=== PATIENT | female | born 1970 | race Caucasian/White ===

== ENCOUNTER 2017-08-25 13:10 | Emergency (ER) | payer SELFPAY ==
[2017-08-25] MEDS ORDERED: Sodium Chloride 0.9% 10 ML Syringe FLUSH PRN (13:31)
[2017-08-25] MEDS ORDERED: MVI, Adult with Vitamin K 10 ML, Thiamine 100 MG, Folic Acid 1 MG in Sodium Chloride 0.... IV ONE ×4 (13:31)
[2017-08-25] MEDS ORDERED: Sodium Chloride 0.9% 2.5 ML Syringe FLUSH PRN (13:31)
--- NOTE | 2017-08-25 13:32 | EDM.PDOCBH ---
ED HPI GENERAL MEDICAL PROBLEM - General Chief Complaint: Behavioral/Psych Stated Complaint: AMB Time Seen by Provider: 08/25/17 13:16 Source of Information: Reports: Patient History Limitations: Reports: Intoxication - History of Present Illness INITIAL COMMENTS - FREE TEXT/NARRATIVE: History of present illness: []Patient was brought in by ambulance accompanied with police for suicidal ideation and binge drinking. Patient attempted to drown herself in a bathtub. Patient is uncooperative and paranoid Review of systems: As per history of present illness and below otherwise all systems reviewed and negative. Past medical history: As per history of present illness and as reviewed below otherwise noncontributory. Surgical history: As per history of present illness and as reviewed below otherwise noncontributory. Social history: No reported history of drug or alcohol abuse. Family history: As per history of present illness and as reviewed below otherwise noncontributory. Physical exam: General: Well developed, well nourished in NAD HEENT: Atraumatic, normocephalic, pupils reactive, negative for conjunctival pallor or scleral icterus, mucous membranes moist, throat clear, neck supple, nontender, trachea midline. Lungs: Clear to auscultation, breath sounds equal bilaterally, chest nontender. Heart: S1S2, regular, negative for clicks, rubs, or JVD. Abdomen: Soft, nondistended, nontender. Negative for masses or hepatosplenomegaly. Negative for costovertebral tenderness. Pelvis: Stable nontender. Genitourinary: Deferred. Rectal: Deferred. Extremities: Atraumatic, negative for cords or calf pain. Neurovascular unremarkable. Neuro: Awake, alert, oriented. Cranial nerves II through XII unremarkable. Cerebellum unremarkable. Motor and sensory unremarkable throughout. Exam nonfocal. Diagnostics: []Mental health screen done alcohol elevated at 336 otherwise negative Therapeutics: []Banana bag given Impression: []Alcohol intoxication, suicidal attempt Plan: []Dr. Crockett at [facility] excepts patient Definitive disposition and diagnosis as appropriate pending reevaluation and review of above. left lower abdominal Pain Score (Numeric/FACES): 8 - Related Data Allergies Allergy/AdvReac Type Severity Reaction Status Date / Time acetaminophen Allergy Hives Verified 08/25/17 13:15 [From Lorcet (hydrocodone)] hydrocodone Allergy Hives Verified 08/25/17 13:15 [From Lorcet (hydrocodone)] Home Meds: Home Meds Estrogen,Daiana/Me-Testosterone [Estrogen-Methyltestos H.s. 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 Musculoskeletal History: Reports: None Neurological History: Reports: None Psychiatric History: Reports: Anxiety Endocrine/Metabolic History: Reports: None Hematologic History: Reports: None Immunologic History: Reports: None Oncologic (Cancer) History: Reports: None Dermatologic History: Reports: None - Infectious Disease History Infectious Disease History: Reports: Chicken Pox - Past Surgical History Head Surgeries/Procedures: Reports: None HEENT Surgical History: Reports: None Cardiovascular Surgical History: Reports: None Respiratory Surgical History: Reports: None GI Surgical History: Reports: Appendectomy, Cholecystectomy Female Surgical History: Reports: Hysterectomy Other Female Surgeries/Procedures: 4 kidney surgeries Endocrine Surgical History: Reports: None Neurological Surgical History: Reports: None Musculoskeletal Surgical History: Reports: None Oncologic Surgical History: Reports: None Dermatological Surgical History: Reports: None Social & Family History - Family History Family Medical History: Noncontributory - Tobacco Use Smoking Status *Q: Current Every Day Smoker Years of Tobacco use: 15 Packs/Tins Daily: 0.5 Used Tobacco, but Quit: No Second Hand Smoke Exposure: No - Caffeine Use Caffeine Use: Reports: Coffee, Energy Drinks - Recreational Drug Use Recreational Drug Use: No ED ROS GENERAL - Review of Systems Review Of Systems: See Below (See history of present illness) ED EXAM, BEHAVIORAL HEALTH - Physical Exam Exam: See Below (See history of present illness) COURSE, BEHAVIORAL HEALTH COMP - Course Vital Signs: Last Vital Signs Temp 97.9 F 08/25/17 13:16 Pulse 114 H 08/25/17 13:16 Resp 18 08/25/17 13:16 BP 125/93 H 08/25/17 13:16 Pulse Ox 98 08/25/17 13:16 Orders, Labs, Meds: Active Orders 24 hr Category Date Time Status EKG Documentation Completion [RC] STAT Care 08/25/17 13:16 Active Involuntary Admission/Hold [RC] ASDIRECTED Care 08/25/17 14:53 Active FREE T3 [REF] Stat Lab 08/25/17 13:26 Received Sodium Chloride 0.9% [Saline Flush] Med 08/25/17 13:31 Active 10 ml FLUSH ASDIRECTED PRN Sodium Chloride 0.9% [Saline Flush] Med 08/25/17 13:31 Active 2.5 ml FLUSH ASDIRECTED PRN Saline Lock Insert [OM.PC] Stat Oth 08/25/17 13:31 Ordered Medication Orders Sodium Chloride (Saline Flush) 10 ml FLUSH ASDIRECTED PRN PRN Reason: Keep Vein Open Sodium Chloride (Saline Flush) 2.5 ml FLUSH ASDIRECTED PRN PRN Reason: Keep Vein Open Laboratory Tests 08/25/17 08/25/17 08/25/17 Range/Units 13:26 13:26 13:26 WBC 8.05 (4.0-11.0) K/uL RBC 4.78 (4.30-5.90) M/uL Hgb 15.6 (12.0-16.0) g/dL Hct 44.9 (36.0-46.0) % MCV 93.9 (80.0-98.0) fL MCH 32.6 H (27.0-32.0) pg MCHC 34.7 (31.0-37.0) g/dL RDW Std Deviation 46.4 (28.0-62.0) fl RDW Coeff of Alfred 14 (11.0-15.0) % Plt Count 344 (150-400) K/uL MPV 9.40 (7.40-12.00) fL Neut % (Auto) 59.5 (48.0-80.0) % Lymph % (Auto) 36.1 (16.0-40.0) % [place] % (Auto) 2.6 (0.0-15.0) % Eos % (Auto) 1.4 (0.0-7.0) % Baso % (Auto) 0.4 (0.0-1.5) % Neut # (Auto) 4.8 (1.4-5.7) K/uL Lymph # (Auto) 2.9 H (0.6-2.4) K/uL [place] # (Auto) 0.2 (0.0-0.8) K/uL Eos # (Auto) 0.1 (0.0-0.7) K/uL Baso # (Auto) 0.0 (0.0-0.1) K/uL Nucleated RBC % 0.0 /100WBC Nucleated RBCs # 0 K/uL Sodium 143 (136-146) mmol/L Potassium 4.5 (3.5-5.1) mmol/L Chloride 106 (98-110) mmol/L Carbon Dioxide 20 L (21-31) mmol/L BUN 12 (6.0-23.0) mg/dL Creatinine 0.8 (0.6-1.5) mg/dL Est Cr Clr Drug Dosing 63.12 mL/min Estimated GFR (MDRD) > 60.0 ml/min Glucose 86 (60-110) mg/dL Calcium 9.3 (8.8-10.8) mg/dL Magnesium 1.5 (1.5-2.3) mEq/L Total Bilirubin 0.3 (0.1-1.5) mg/dL AST 45 H (5-40) IU/L ALT 36 (8-54) IU/L Alkaline Phosphatase 70 (40-150) Total Protein 8.2 H (6.0-8.0) g/dL Albumin 4.6 (3.5-5.0) g/dL Globulin 3.6 H (2.0-3.5) g/dL Albumin/Globulin Ratio 1.3 (1.3-2.8) Lipase 23 (7-80) U/L TSH 3rd Generation 0.66 (0.47-5.0) uIU/mL Urine Color Urine Appearance Urine pH (5.0-8.0) Ur Specific [place] (1.001-1.035) Urine Protein (NEGATIVE) mg/dL Urine Glucose (UA) (NEGATIVE) mg/dL Urine Ketones (NEGATIVE) mg/dL Urine Occult Blood (NEGATIVE) Urine Nitrite (NEGATIVE) Urine Bilirubin (NEGATIVE) Urine Urobilinogen (<2.0) EU/dL Ur Leukocyte Esterase (NEGATIVE) Urine RBC (0-2/HPF) Urine WBC (0-5/HPF) Ur Epithelial Cells (NONE-FEW) Urine Bacteria (NEGATIVE) Salicylates < 5.0 (0-20) mg/dL Urine Opiates Screen (NEGATIVE) Ur Oxycodone Screen (NEGATIVE) Urine Methadone Screen (NEGATIVE) Acetaminophen < 3.0 ug/mL Ur Barbiturates Screen (NEGATIVE) Ur Phencyclidine Scrn (NEGATIVE) Ur Amphetamine Screen (NEGATIVE) U Methamphetamines Scrn (NEGATIVE) U Benzodiazepines Scrn (NEGATIVE) U Cocaine Metab Screen (NEGATIVE) U Marijuana (THC) Screen (NEGATIVE) Ethyl Alcohol 336.0 mg/dL 08/25/17 08/25/17 Range/Units 16:44 16:44 WBC (4.0-11.0) K/uL RBC (4.30-5.90) M/uL Hgb (12.0-16.0) g/dL Hct (36.0-46.0) % MCV (80.0-98.0) fL MCH (27.0-32.0) pg MCHC (31.0-37.0) g/dL RDW Std Deviation (28.0-62.0) fl RDW Coeff of Alfred (11.0-15.0) % Plt Count (150-400) K/uL MPV (7.40-12.00) fL Neut % (Auto) (48.0-80.0) % Lymph % (Auto) (16.0-40.0) % [place] % (Auto) (0.0-15.0) % Eos % (Auto) (0.0-7.0) % Baso % (Auto) (0.0-1.5) % Neut # (Auto) (1.4-5.7) K/uL Lymph # (Auto) (0.6-2.4) K/uL [place] # (Auto) (0.0-0.8) K/uL Eos # (Auto) (0.0-0.7) K/uL Baso # (Auto) (0.0-0.1) K/uL Nucleated RBC % /100WBC Nucleated RBCs # K/uL Sodium (136-146) mmol/L Potassium (3.5-5.1) mmol/L Chloride (98-110) mmol/L Carbon Dioxide (21-31) mmol/L BUN (6.0-23.0) mg/dL Creatinine (0.6-1.5) mg/dL Est Cr Clr Drug Dosing mL/min Estimated GFR (MDRD) ml/min Glucose (60-110) mg/dL Calcium (8.8-10.8) mg/dL Magnesium (1.5-2.3) mEq/L Total Bilirubin (0.1-1.5) mg/dL AST (5-40) IU/L ALT (8-54) IU/L Alkaline Phosphatase (40-150) Total Protein (6.0-8.0) g/dL Albumin (3.5-5.0) g/dL Globulin (2.0-3.5) g/dL Albumin/Globulin Ratio (1.3-2.8) Lipase (7-80) U/L TSH 3rd Generation (0.47-5.0) uIU/mL Urine Color YELLOW Urine Appearance CLEAR Urine pH 6.0 (5.0-8.0) Ur Specific [place] 1.010 (1.001-1.035) Urine Protein NEGATIVE (NEGATIVE) mg/dL Urine Glucose (UA) NEGATIVE (NEGATIVE) mg/dL Urine Ketones 15 H (NEGATIVE) mg/dL Urine Occult Blood NEGATIVE (NEGATIVE) Urine Nitrite NEGATIVE (NEGATIVE) Urine Bilirubin NEGATIVE (NEGATIVE) Urine Urobilinogen 0.2 (<2.0) EU/dL Ur Leukocyte Esterase NEGATIVE (NEGATIVE) Urine RBC 0-1 (0-2/HPF) Urine WBC 0-3 (0-5/HPF) Ur Epithelial Cells FEW (NONE-FEW) Urine Bacteria FEW (NEGATIVE) Salicylates (0-20) mg/dL Urine Opiates Screen NEGATIVE (NEGATIVE) Ur Oxycodone Screen NEGATIVE (NEGATIVE) Urine Methadone Screen NEGATIVE (NEGATIVE) Acetaminophen ug/mL Ur Barbiturates Screen NEGATIVE (NEGATIVE) Ur Phencyclidine Scrn NEGATIVE (NEGATIVE) Ur Amphetamine Screen NEGATIVE (NEGATIVE) U Methamphetamines Scrn NEGATIVE (NEGATIVE) U Benzodiazepines Scrn NEGATIVE (NEGATIVE) U Cocaine Metab Screen NEGATIVE (NEGATIVE) U Marijuana (THC) Screen NEGATIVE (NEGATIVE) Ethyl Alcohol mg/dL Medications Generic Name Dose Route Start Last Admin Trade Name Freq PRN Reason Stop Dose Admin Sodium Chloride 10 ml 08/25/17 13:31 Saline Flush FLUSH ASDIRECTED PRN Keep Vein Open Sodium Chloride 2.5 ml 08/25/17 13:31 Saline Flush FLUSH ASDIRECTED PRN Keep Vein Open Discontinued Medications Generic Name Dose Route Start Last Admin Trade Name Freq PRN Reason Stop Dose Admin Multivitamins/Minerals 10 ml/ 1,011.2 mls @ 999 mls/hr 08/25/17 13:31 13:49 Thiamine HCl 100 mg/ Folic IV 08/25/17 14:31 999 mls/hr Acid 1 mg/ Sodium Chloride ONETIME ONE Administration Olanzapine 10 mg/ Sterile 2.1 mls @ 999 mls/hr 08/25/17 14:02 08/25/17 14:17 Water IM 08/25/17 14:03 999 mls/hr ONETIME ONE Administration Sterile Water Confirm 08/25/17 14:01 08/25/17 14:17 Sterile Water For Injection Administered 08/25/17 14:02 Not Given Dose 20 mls @ as directed .ROUTE .STK-MED ONE Lorazepam 1 mg 08/25/17 13:33 08/25/17 13:38 Ativan PO 08/25/17 13:34 1 mg ONETIME ONE Administration Lorazepam 2 mg 08/25/17 14:36 Ativan IVPUSH 08/25/17 14:37 ONETIME ONE Olanzapine Confirm 08/25/17 13:57 08/25/17 14:17 Zyprexa Administered 08/25/17 13:58 Not Given Dose 10 mg .ROUTE .STK-MED ONE Departure - Departure Time of Disposition: 17:10 Disposition: DC/Tfer to Psych Hosp/Unit 65 Condition: Fair Clinical Impression: Suicide attempt Alcohol intoxication Qualifiers: Complication of substance-induced condition: uncomplicated Qualified Code(s): F10.920 - Alcohol use, unspecified with intoxication, uncomplicated - Discharge Information Referrals: PCP,None [Primary Care Provider] - Forms: ED Department Discharge - My Orders Last 24 Hours: My Active Orders 08/25/17 13:16 EKG Documentation Completion [RC] STAT 08/25/17 13:26 FREE T3 [REF] Stat 08/25/17 13:31 Sodium Chloride 0.9% [Saline Flush] 10 ml FLUSH ASDIRECTED PRN Sodium Chloride 0.9% [Saline Flush] 2.5 ml FLUSH ASDIRECTED PRN Saline Lock Insert [OM.PC] Stat 08/25/17 14:53 Involuntary Admission/Hold [RC] ASDIRECTED - Assessment/Plan Last 24 Hours: My Active Orders 08/25/17 13:16 EKG Documentation Completion [RC] STAT 08/25/17 13:26 FREE T3 [REF] Stat 08/25/17 13:31 Sodium Chloride 0.9% [Saline Flush] 10 ml FLUSH ASDIRECTED PRN Sodium Chloride 0.9% [Saline Flush] 2.5 ml FLUSH ASDIRECTED PRN Saline Lock Insert [OM.PC] Stat 08/25/17 14:53 Involuntary Admission/Hold [RC] ASDIRECTED
[2017-08-25] MEDS ORDERED: LORazepam 1 MG Tab PO ONE (13:33)
[2017-08-25] MEDS ORDERED: OLANZapine 10 MG Vial ONE (13:57)
[2017-08-25 13:58] LABS: ACETAMINOPHEN < 3.0 ug/mL; CHLORIDE,CL 106 mmol/L (98-110); SODIUM,NA 143 mmol/L (136-146)
[2017-08-25] MEDS ORDERED: Water For Injection, Sterile 20 ML ONE (14:01)
[2017-08-25] MEDS ORDERED: OLANZapine 10 MG in Water For Injection, Sterile 2.1 ML IM ONE (14:02)
[2017-08-25] MEDS ORDERED: LORazepam 2 MG/ML SDV IVPUSH ONE (14:36)
[2017-08-25 17:32] VITALS: BP 104/73
== END 2017-08-25 17:15 ==
LOC: MW.ED 13:10
DX: T14.91XA Suicide attempt, initial encounter (principal); F10.129 Alcohol abuse with intoxication, unspecified; Y90.8 Blood alcohol level of 240 mg/100 ml or more; F17.210 Nicotine dependence, cigarettes, uncomplicated; Z88.6 Allergy status to analgesic agent; Z88.5 Allergy status to narcotic agent; Z79.899 Other long term (current) drug therapy; X71.0XXA Intentional self-harm by drowning and submersion while in bathtub, initial encounter
CPT/HCPCS: 80053; 80305; 81001; 83690; 83735; 84443; 84481; 85025; 93005; 96365; 96366; 96372; 99285; A9270; G0480; J3411; J7040; 36415; 99284

== ENCOUNTER 2017-09-19 10:08 | Day surgery (SDC) | payer OTHER ==
[~2017-09-19 10:08] MED LIST: Lactated Ringers 1,000 ML IV SCH; Sodium Chloride 0.9% 10 ML Syringe FLUSH PRN; Sodium Chloride 0.9% 2.5 ML Syringe FLUSH PRN
[2017-09-19] MEDS ORDERED: Propofol 200 MG/20 ML SDV ONE (10:20)
[2017-09-19] MEDS ORDERED: Lidocaine 2% 5 ML SDV ONE (10:20)
[2017-09-19] MEDS ORDERED: fentaNYL 100 MCG/2 ML SDV ONE (10:21)
[2017-09-19] MEDS ORDERED: Midazolam 1 MG/ML 2 ML SDV ONE (10:21)
--- NOTE | 2017-09-19 10:52 | PCM.PREANE ---
Preanesthetic Assessment - Anesthesia/Transfusion/Family Hx Anesthesia History: Prior Anesthesia Without Reaction Family History of Anesthesia Reaction: No Transfusion History: No Prior Transfusion(s) Intubation History: Unknown - Review of Systems General: No Symptoms Pulmonary: No Symptoms Cardiovascular: No Symptoms Gastrointestinal: Abdominal Pain, Diarrhea Neurological: No Symptoms Other: Reports: None - Physical Assessment Height: 1.54 m Weight: 59.874 kg ASA Class: 2 Mental Status: Alert & Oriented x3 Airway Class: Mallampati = 2 Dentition: Reports: Normal Dentition Thyro-Mental Finger Breadths: 3 Mouth Opening Finger Breadths: 2 ROM/Head Extension: Full Lungs: Clear to Auscultation, Normal Respiratory Effort Cardiovascular: Regular Rate, Regular Rhythm - Allergies Allergies/Adverse Reactions: Allergies Allergy/AdvReac Type Severity Reaction Status Date / Time acetaminophen Allergy Hives Verified 09/17/17 10:18 [From Lorcet (hydrocodone)] hydrocodone Allergy Hives Verified 09/17/17 10:18 [From Lorcet (hydrocodone)] - Blood Blood Available: No - Anesthesia Plan Pre-Op Medication Ordered: None - Acknowledgements Anesthesia Type Planned: MAC Pt an Appropriate Candidate for the Planned Anesthesia: Yes Alternatives and Risks of Anesthesia Discussed w Pt/Guardian: Yes Pt/Guardian Understands and Agrees with Anesthesia Plan: Yes PreAnesthesia Questionnaire HEENT History: Reports: None Cardiovascular History: Reports: None Respiratory History: Reports: None Gastrointestinal History: Reports: Chronic Diarrhea Genitourinary History: Reports: Renal Calculus [employer]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: Musculoskeletal History: Reports: Fracture Other Musculoskeletal History: hx of fx left foot Neurological History: Reports: None Psychiatric History: Reports: Anxiety, Depression, PTSD, Suicide Attempt Endocrine/Metabolic History: Reports: None Hematologic History: Reports: None Immunologic History: Reports: None Oncologic (Cancer) History: Reports: None Dermatologic History: Reports: None - Infectious Disease History Infectious Disease History: Reports: Chicken Pox - Past Surgical History Head Surgeries/Procedures: Reports: None GI Surgical History: Reports: Appendectomy, Cholecystectomy, Colonoscopy (more than 20 years ago) Female Surgical History: Reports: Breast Implant, Section, Hysterectomy, Kidney stone extraction, Other (See Below) Other Female Surgeries/Procedures: right nephrectomy - SUBSTANCE USE Smoking Status *Q: Current Every Day Smoker (1/2 ppd) Tobacco Use Within Last Twelve Months: Cigarettes Second Hand Smoke Exposure: No Recreational Drug Use History: No - HOME MEDS Home Medications: Home Meds Doxepin [SINEquan] 25 - 50 mg PO BEDTIME PRN 09/17/17 [History] Estradiol 2 mg PO DAILY 09/17/17 [History] Venlafaxine [Effexor XR] 150 mg PO DAILY 09/17/17 [History] - CURRENT (IN HOUSE) MEDS Current Meds: Current Medications Lactated Ringer's (Ringers, Lactated) 1,000 mls @ 125 mls/hr IV ASDIRECTED NKECHI Sodium Chloride (Saline Flush) 10 ml FLUSH ASDIRECTED PRN PRN Reason: Keep Vein Open Sodium Chloride (Saline Flush) 2.5 ml FLUSH ASDIRECTED PRN PRN Reason: Keep Vein Open Sodium Chloride (Saline Flush) 10 ml FLUSH ASDIRECTED PRN PRN Reason: Keep Vein Open Sodium Chloride (Saline Flush) 2.5 ml FLUSH ASDIRECTED PRN PRN Reason: Keep Vein Open Discontinued Medications Fentanyl (Sublimaze) Confirm Administered Dose 100 mcg .ROUTE .STK-MED ONE Stop: 09/19/17 10:22 Lidocaine (Xylocaine-Mpf 2%) Confirm Administered Dose 10 ml .ROUTE .STK-MED ONE Stop: 09/19/17 10:21 Midazolam HCl (Versed 1 Mg/Ml) Confirm Administered Dose 2 mg .ROUTE .STK-MED ONE Stop: 09/19/17 10:22 Propofol (Diprivan 20 Ml) Confirm Administered Dose 400 mg .ROUTE .STK-MED ONE Stop: 09/19/17 10:21
--- NOTE | 2017-09-19 11:55 | PCM.OPNOTE ---
- General Post-Op/Procedure Note Date of Surgery/Procedure: 09/19/17 Operative Procedure(s): Diagnostic colonoscopy Findings: Few scattered diverticuli, mild non-specific colitis of the distal sigmoid and rectum. Random biopsies taken Pre Op Diagnosis: Left lower quadrant pain, change in bowel habits, hematochezia Post-Op Diagnosis: Diverticulosis, mild colitis Anesthesia Technique: [facility] [place] Primary Surgeon: Elsa Tijerina Condition: Good
--- NOTE | 2017-09-19 12:40 | PCM48HPAN ---
Post Anesthesia Note - EVALUATION WITHIN 48HRS OF ANESTHETIC Vital Signs in Normal Range: Yes Patient Participated in Evaluation: Yes Respiratory Function Stable: Yes Airway Patent: Yes Cardiovascular Function Stable: Yes Hydration Status Stable: Yes Pain Control Satisfactory: Yes Nausea and Vomiting Control Satisfactory: Yes Mental Status Recovered: Yes Resp Rate: 22 - COMMENTS/OBSERVATIONS Free Text/Narrative:: no anesthesia problems
[2017-09-19 13:27] VITALS: BP 133/81
--- NOTE | 2017-09-19 15:37 | OR ---
SURGEON: JORGE REN MD DATE OF PROCEDURE: 09/19/2017 PREOPERATIVE DIAGNOSES: 1. Family history of colon cancer. 2. Change in bowel habits. POSTOPERATIVE DIAGNOSES: 1. Diverticulosis. 2. Colitis. PROCEDURE PERFORMED: Diagnostic colonoscopy. ANESTHESIA: MAC. INSTRUMENT USED: Olympus colonoscope. EXTENT OF EXAM: To the cecum. PREPARATION: Good. LIMITATIONS: None. INDICATION FOR EXAMINATION: The patient is a 47-year-old female, whose mother of colon cancer at the age of 42. The patient has been having some hematochezia as well as left lower quadrant abdominal pain. The patient and I discussed the need for diagnostic colonoscopy. We discussed the procedure, expected perioperative course, and risks including bleeding, infection, or damage to surrounding structures including perforation. The patient verbalized understanding and wishes to proceed. PROCEDURE IN DETAIL: The patient was brought to the endoscopy suite and placed in the left lateral decubitus position. A time-out was completed verifying the patient's name, age, date of , allergies, and procedure to be performed. Monitored anesthesia care was induced and continuous oxygen was provided via nasal cannula throughout the procedure. After adequate sedation was achieved, a digital rectal exam was performed. This exam was within normal limits. A well lubricated colonoscope was inserted in the rectum and advanced under direct visualization to the level of cecum. The cecum was identified by both visual and anatomic landmarks. A photograph was taken of the cecal cap as well as the scope retroflexed within the cecum. The scope was then fully withdrawn while examining the color, texture, anatomy, and integrity of the mucosa from the cecum to the anal canal. The patient was found to have some mild diverticulosis throughout the colon. In the sigmoid colon and rectum, the mucosa appeared to have some mild changes consistent with colitis. Random biopsies were taken at the beginning of the sigmoid colon as well as in the distal sigmoid colon and sent to pathology for testing. There was no evidence of any polyps within the colon. The scope was then brought into the rectum and retroflexed to allow visualization of the anal canal opening. This appeared normal and a photograph was taken. The scope was then straightened out and removed from the patient. The cecum to anus time was greater than 6 minutes. The patient tolerated the procedure well and was taken to PACU in stable condition. ENDOSCOPIC DIAGNOSES: 1. Diverticulosis. 2. Colitis. RECOMMENDATIONS: Follow up in clinic in 2 weeks to go through her pathology results. ROSS / REHANA /[id number]
== END 2017-09-19 12:45 | disposition home or self-care (01) ==
LOC: MW.SDS 10:08
PROVIDERS: ATTEND Surgery
DX: K52.9 Noninfective gastroenteritis and colitis, unspecified (principal); K57.30 Diverticulosis of large intestine without perforation or abscess without bleeding; E34.8 Other specified endocrine disorders; F17.210 Nicotine dependence, cigarettes, uncomplicated; F41.9 Anxiety disorder, unspecified; F32.9 Major depressive disorder, single episode, unspecified; Z98.890 Other specified postprocedural states; Z80.0 Family history of malignant neoplasm of digestive organs; Z79.899 Other long term (current) drug therapy; Z90.49 Acquired absence of other specified parts of digestive tract; Z90.710 Acquired absence of both cervix and uterus; Z90.5 Acquired absence of kidney; Z88.5 Allergy status to narcotic agent; Z79.890 Hormone replacement therapy
CPT/HCPCS: 45380; 88305; J2250; J3010; J7120; 00811; J2704

== ENCOUNTER 2018-09-29 13:47 | Emergency (ER) | payer MEDICAID ==
[2018-09-29] MEDS ORDERED: LORazepam 2 MG/ML SDV IM ONE (13:49)
--- NOTE | 2018-09-29 13:51 | EDM.PDOCBH ---
ED HPI GENERAL MEDICAL PROBLEM - General Chief Complaint: Behavioral/Psych Stated Complaint: PANIC ATTACK Time Seen by Provider: 09/29/18 13:49 Source of Information: Reports: Patient History Limitations: Reports: No Limitations - History of Present Illness INITIAL COMMENTS - FREE TEXT/NARRATIVE: HISTORY AND PHYSICAL: History of present illness: Patient is a 43-year-old female who presents to the emergency room with concerns of a panic attack. She states she is a chronic alcoholic and has been abstaining from alcohol over the past 3 months. Last night she drank heavily. Woke this morning with anxiety, tremors and restlessness. She denies any drug abuse. Patient states she has been able to eat and drink appropriately. She denies any fever, chills, chest pain. Denies any abdominal pain, nausea, vomiting, diarrhea or constipation. Review of systems: As per history of present illness and below otherwise all systems reviewed and negative. Past medical history: As per history of present illness and as reviewed below otherwise noncontributory. Surgical history: As per history of present illness and as reviewed below otherwise noncontributory. Social history: See social history for further information Family history: As per history of present illness and as reviewed below otherwise noncontributory. Physical exam: General: Well-developed and well-nourished 48-year-old female. Alert and oriented. Nontoxic appearing, anxious and fidgeting during examination but in no acute distress. HEENT: Atraumatic, normocephalic, pupils equal and reactive bilaterally, negative for conjunctival pallor or scleral icterus, mucous membranes moist, TMs normal bilaterally, throat clear, neck supple, nontender, trachea midline. No drooling or trismus noted. No meningeal signs. No hot potato voice noted. Lungs: Clear to auscultation, breath sounds equal bilaterally, chest nontender. Heart: S1S2, regular rate and rhythm without overt murmur Abdomen: Soft, nondistended, nontender. Negative for masses or hepatosplenomegaly. Negative for costovertebral tenderness. Pelvis: Stable nontender. Genitourinary: Deferred. Rectal: Deferred. Skin: Intact, warm, dry. No lesions or rashes noted. Extremities: Atraumatic, negative for cords or calf pain. Neurovascular unremarkable. Neuro: Awake, alert, oriented. Cranial nerves II through XII unremarkable. Cerebellum unremarkable. Motor and sensory unremarkable throughout. Exam nonfocal. Notes: Patient does have a ride from the emergency room. She is agreeable to receiving Ativan IM and continue monitoring. Patient also from the emergency room shortly after receiving the Ativan and Zofran. Attempted to contact and locate the patient, unsuccessful. Diagnostics: None Therapeutics: Ativan IM, Zofran Prescription: None Impression: Anxiety History of Alcohol Abuse Eloped Plan: 1. Continue abstaining from alcohol. 2. The medication that he received while here in the emergency room may cause drowsiness a do not drive for the remainder of the day. 3. Follow-up with your primary caregiver as we discussed. Return to the ED as needed and as discussed. Definitive disposition and diagnosis as appropriate pending reevaluation and review of above. - Related Data Allergies Allergy/AdvReac Type Severity Reaction Status Date / Time acetaminophen Allergy Hives Verified 09/29/18 13:52 [From Lorcet (hydrocodone)] hydrocodone Allergy Hives Verified 09/29/18 13:52 [From Lorcet (hydrocodone)] Home Meds: Home Meds . [No Known Home Meds] 09/29/18 [History] Past Medical History HEENT History: Reports: None Cardiovascular History: Reports: Other (See Below) Other Cardiovascular History: "i'm on a heart pill because I smoke too much" Respiratory History: Reports: None Gastrointestinal History: Reports: Chronic Diarrhea Genitourinary History: Reports: Renal Calculus [employer] History: Reports: Musculoskeletal History: Reports: Fracture Other Musculoskeletal History: hx of fx left foot Neurological History: Reports: None Psychiatric History: Reports: Anxiety, Depression, PTSD, Suicide Attempt Endocrine/Metabolic History: Reports: None Hematologic History: Reports: None Immunologic History: Reports: None Oncologic (Cancer) History: Reports: None Dermatologic History: Reports: None - Infectious Disease History Infectious Disease History: Reports: Chicken Pox - Past Surgical History Head Surgeries/Procedures: Reports: None Cardiovascular Surgical History: Reports: None Respiratory Surgical History: Reports: Other (See Below) Other Respiratory Surgeries/Procedures: left lobectomy GI Surgical History: Reports: Appendectomy, Cholecystectomy, Colonoscopy Female Surgical History: Reports: Breast Implant, Section, Hysterectomy, Kidney stone extraction, Other (See Below) Other Female Surgeries/Procedures: right nephrectomy Musculoskeletal Surgical History: Reports: None Social & Family History - Family History Family Medical History: Noncontributory - Caffeine Use Caffeine Use: Reports: Coffee, Energy Drinks, Soda ED ROS GENERAL - Review of Systems Review Of Systems: ROS reveals no pertinent complaints other than HPI. ED EXAM, BEHAVIORAL HEALTH - Physical Exam Exam: See Below (See dictation) COURSE, BEHAVIORAL HEALTH COMP - Course Vital Signs: Last Vital Signs Temp 95.6 F 09/29/18 13:53 Pulse 115 H 09/29/18 13:53 Resp 24 H 09/29/18 13:53 BP 123/74 09/29/18 13:53 Pulse Ox 98 09/29/18 13:53 Orders, Labs, Meds: Medications Discontinued Medications Generic Name Dose Route Start Last Admin Trade Name Freq PRN Reason Stop Dose Admin Lorazepam 1 mg 09/29/18 13:49 09/29/18 13:59 Ativan IM 09/29/18 13:50 1 mg ONETIME ONE Administration Ondansetron HCl 4 mg 09/29/18 13:53 09/29/18 13:59 Zofran Odt PO 09/29/18 13:54 4 mg ONETIME ONE Administration Departure - Departure Time of Disposition: 14:22 Disposition: Home, Self-Care 01 Clinical Impression: Anxiety, History of alcohol abuse, Eloped from emergency department - Discharge Information Instructions: Panic Attack Referrals: PCP,Unknown [Primary Care Provider] - Forms: ED Department Discharge Additional Instructions: The following information is given to patients seen in the emergency department who are being discharged to home. This information is to outline your options for follow-up care. We provide all patients seen in our emergency department with a follow-up referral. The need for follow-up, as well as the timing and circumstances, are variable depending upon the specifics of your emergency department visit. If you don't have a primary care physician on staff, we will provide you with a referral. We always advise you to contact your personal physician following an emergency department visit to inform them of the circumstance of the visit and for follow-up with them and/or the need for any referrals to a consulting specialist. The emergency department will also refer you to a specialist when appropriate. This referral assures that you have the opportunity for follow-up care with a specialist. All of these measure are taken in an effort to provide you with optimal care, which includes your follow-up. Under all circumstances we always encourage you to contact your private physician who remains a resource for coordinating your care. When calling for follow-up care, please make the office aware that this follow-up is from your recent emergency room visit. If for any reason you are refused follow-up, please contact the [facility] at and asked to speak to the emergency department charge nurse. [facility] [address] [place] [id number] [facility] [address] [place] [id number] 1. Continue abstaining from alcohol. 2. The medication that he received while here in the emergency room may cause drowsiness a do not drive for the remainder of the day. 3. Follow-up with your primary caregiver as we discussed. Return to the ED as needed and as discussed.
[2018-09-29] MEDS ORDERED: Ondansetron 4 MG Tab.DIS PO ONE (13:53)
[2018-09-29 13:55] VITALS: BP 123/74
== END 2018-09-29 14:30 | disposition home or self-care (01) ==
LOC: MW.ED 13:47
DX: F41.9 Anxiety disorder, unspecified (principal); F10.10 Alcohol abuse, uncomplicated; Z53.21 Procedure and treatment not carried out due to patient leaving prior to being seen by health care provider; Z88.8 Allergy status to other drugs, medicaments and biological substances; Z88.5 Allergy status to narcotic agent
CPT/HCPCS: 96372; 99283; A9270; J2060

== ENCOUNTER 2018-12-16 13:57 | Observation (INO) | payer OTHER ==
[2018-12-16] MEDS ORDERED: Sodium Chloride 0.9% 1,000 ML IV ONE (14:30)
[2018-12-16] MEDS ORDERED: Ondansetron 4 MG/2 ML SDV IVPUSH ONE (14:30)
--- NOTE | 2018-12-16 14:36 | EDM.PDOC ---
ED HPI GENERAL MEDICAL PROBLEM - General Chief Complaint: Respiratory Problem Stated Complaint: SHORTNESS OF BREATH Time Seen by Provider: 12/16/18 14:12 Source of Information: Reports: Patient History Limitations: Reports: No Limitations - History of Present Illness INITIAL COMMENTS - FREE TEXT/NARRATIVE: HISTORY AND PHYSICAL: History of present illness: Patient is a 48-year-old female presents to the ED today via EMS for concern of feeling like she can't take a deep breath over the past 2 days. Patient states her symptoms are worse when she tries to smoke a cigarette. Patient states she has been drinking alcohol over the past few days but has not drank since about 8 this morning. Patient does express some slight nausea that she believes is related to her alcohol drinking but denies any vomiting or any other symptoms. Patient denies any other symptoms or any health history at this time. Patient denies fever, chills, chest pain, or cough. Denies headache, neck stiff ness, change in vision, syncope, or near syncope. Denies vomiting, abdominal pain, diarrhea, constipation, or dysuria. Has not noted any blood in urine or stool. Patient has been eating and drinking appropriately. Review of systems: As per history of present illness and below otherwise all systems reviewed and negative. Past medical history: As per history of present illness and as reviewed below otherwise noncontributory. Surgical history: As per history of present illness and as reviewed below otherwise noncontributory. Social history: See social history for further information Family history: As per history of present illness and as reviewed below otherwise noncontributory. Physical exam: General: Patient is alert, oriented, and in no acute distress. Patient laying comfortably on exam table. Patient able to answer questions appropriately, alert to person, place, and time. HEENT: Atraumatic, normocephalic, pupils equal and reactive bilaterally, negative for conjunctival pallor or scleral icterus, mucous membranes moist, TMs normal bilaterally, throat clear, neck supple, nontender, trachea midline. No drooling or trismus noted. No meningeal signs. No hot potato voice noted. Lungs: Mild wheezing to auscultation in bilateral lung bases, breath sounds equal bilaterally, chest nontender. Heart: S1S2, regular rate and rhythm without overt murmur Abdomen: Soft, nondistended, nontender. Negative for masses or hepatosplenomegaly. Negative for costovertebral tenderness. Pelvis: Stable nontender. Genitourinary: Deferred. Rectal: Deferred. Skin: Intact, warm, dry. No lesions or rashes noted. Extremities: Atraumatic, negative for cords or calf pain. Neurovascular unremarkable. Neuro: Awake, alert, oriented. Cranial nerves II through XII unremarkable. Cerebellum unremarkable. Motor and sensory unremarkable throughout. Exam nonfocal. Notes: Dr. Treviño was contacted on patient and will admit to observation. Voices understanding and is agreeable to plan of care. Denies any further questions or concerns at this time. Diagnostics: CBC, CMP, INR, troponin, UA, chest x-ray, EKG, A1X Therapeutics: Saline, Zofran, DuoNeb, D5NS Impression: Hyponatremia Hypoglycemia hypocalcemia Ketonuria Plan: 1. Admit to observation to Dr. Treviño Definitive disposition and diagnosis as appropriate pending reevaluation and review of above. - Related Data Allergies Allergy/AdvReac Type Severity Reaction Status Date / Time acetaminophen Allergy Hives Verified 12/16/18 14:04 [From Lorcet (hydrocodone)] hydrocodone Allergy Hives Verified 12/16/18 14:04 [From Lorcet (hydrocodone)] Home Meds: Home Meds . 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: Reports: Musculoskeletal History: Reports: Fracture Other Musculoskeletal History: hx of fx left foot Neurological History: Reports: None Psychiatric History: Reports: Anxiety, Depression, PTSD, Suicide Attempt Endocrine/Metabolic History: Reports: None Hematologic History: Reports: None Immunologic History: Reports: None Oncologic (Cancer) History: Reports: None Dermatologic History: Reports: None - Infectious Disease History Infectious Disease History: Reports: Chicken Pox - Past Surgical History Head Surgeries/Procedures: Reports: None Cardiovascular Surgical History: Reports: None Respiratory Surgical History: Reports: Other (See Below) Other Respiratory Surgeries/Procedures: left lobectomy GI Surgical History: Reports: Appendectomy, Cholecystectomy, Colonoscopy Female Surgical History: Reports: Breast Implant, Section, Hysterectomy, Kidney stone extraction, Other (See Below) Other Female Surgeries/Procedures: right nephrectomy x 2 Musculoskeletal Surgical History: Reports: None Social & Family History - Family History Family Medical History: Noncontributory - Tobacco Use Smoking Status *Q: Current Every Day Smoker Years of Tobacco use: 10 Packs/Tins Daily: 0.5 - Caffeine Use Caffeine Use: Reports: None - Recreational Drug Use Recreational Drug Use: No ED ROS GENERAL - Review of Systems Review Of Systems: ROS reveals no pertinent complaints other than HPI. ED EXAM, GENERAL - Physical Exam Exam: See Below (See dictation) Course - Vital Signs Last Recorded V/S: Last Vital Signs Temp 36.6 C 12/16/18 14:06 Pulse 126 H 12/16/18 17:34 Resp 20 12/16/18 17:34 BP 138/87 12/16/18 17:34 Pulse Ox 96 12/16/18 17:34 - Orders/Labs/Meds Orders: Active Orders 24 hr Category Date Time Status Admission Status [Patient Status] [ADT] Stat ADT 12/16/18 17:14 Active EKG Documentation Completion [RC] STAT Care 12/16/18 14:13 Active RT Aerosol Therapy [RC] ASDIRECTED Care 12/16/18 14:36 Active Dextrose 5%-0.9% NaCl [Dextrose 5%-Normal Saline] 1,000 Med 12/16/18 17:15 Active ml IV ASDIRECTED Medication Orders Albuterol (Proventil Neb Soln) 2.5 mg NEB Q2H PRN PRN Reason: Shortness Of Breath/wheezing Enoxaparin Sodium (Lovenox) 40 mg SUBCUT Q24H NKECHI Folic Acid (Folic Acid) 1 mg PO DAILY NKECHI Dextrose/Sodium Chloride (Dextrose 5%-Normal Saline) 1,000 mls @ 125 mls/hr IV ASDIRECTED NKECHI Lorazepam (Ativan) 0 mg IVPUSH Q4H PRN; Protocol PRN Reason: Agitation Nicotine (Habitrol) 14 mg TRDERM DAILY NKECHI Ondansetron HCl (Zofran Odt) 4 mg PO Q4H PRN PRN Reason: nausea, able to take PO Temazepam (Restoril) 15 mg PO BEDTIME PRN PRN Reason: Sleep Thiamine HCl (Vitamin B-1) 100 mg PO BEDTIME NKECHI Labs: Laboratory Tests 12/16/18 12/16/18 12/16/18 Range/Units 14:45 14:45 14:45 WBC 9.12 (4.0-11.0) K/uL RBC 4.23 L (4.30-5.90) M/uL Hgb 13.9 (12.0-16.0) g/dL Hct 38.7 (36.0-46.0) % MCV 91.5 (80.0-98.0) fL MCH 32.9 H (27.0-32.0) pg MCHC 35.9 (31.0-37.0) g/dL RDW Std Deviation 44.6 (28.0-62.0) fl RDW Coeff of Alfred 13 (11.0-15.0) % Plt Count 218 (150-400) K/uL MPV 11.00 (7.40-12.00) fL Neut % (Auto) 77.7 (48.0-80.0) % Lymph % (Auto) 17.7 (16.0-40.0) % Stanton % (Auto) 4.5 (0.0-15.0) % Eos % (Auto) 0.0 (0.0-7.0) % Baso % (Auto) 0.1 (0.0-1.5) % Neut # (Auto) 7.1 H (1.4-5.7) K/uL Lymph # (Auto) 1.6 (0.6-2.4) K/uL Stanton # (Auto) 0.4 (0.0-0.8) K/uL Eos # (Auto) 0.0 (0.0-0.7) K/uL Baso # (Auto) 0.0 (0.0-0.1) K/uL Nucleated RBC % 0.0 /100WBC Nucleated RBCs # 0 K/uL INR 0.92 Sodium 123 L (136-145) mmol/L Potassium 4.4 (3.5-5.1) mmol/L Chloride 87 L (98-107) mmol/L Carbon Dioxide 10.9 L (21.0-32.0) mmol/L BUN 14 (7.0-18.0) mg/dL Creatinine 0.7 (0.6-1.0) mg/dL Est Cr Clr Drug Dosing 71.36 mL/min Estimated GFR (MDRD) > 60.0 ml/min Glucose 68 L (74-106) mg/dL Hemoglobin A1c (4.5-6.2) % Calcium 8.0 L (8.5-10.1) mg/dL Phosphorus (2.6-4.7) mg/dL Magnesium (1.8-2.4) mg/dL Total Bilirubin 0.6 (0.2-1.0) mg/dL AST 65 H (15-37) IU/L ALT 49 (14-63) IU/L Alkaline Phosphatase 87 (46-116) U/L Troponin I (0.000-0.056) ng/mL Total Protein 7.8 (6.4-8.2) g/dL Albumin 3.8 (3.4-5.0) g/dL Globulin 4.0 (2.6-4.0) g/dL Albumin/Globulin Ratio 0.9 (0.9-1.6) Urine Color Urine Appearance Urine pH (5.0-8.0) Ur Specific [place] (1.001-1.035) Urine Protein (NEGATIVE) mg/dL Urine Glucose (UA) (NEGATIVE) mg/dL Urine Ketones (NEGATIVE) mg/dL Urine Occult Blood (NEGATIVE) Urine Nitrite (NEGATIVE) Urine Bilirubin (NEGATIVE) Urine Urobilinogen (<2.0) EU/dL Ur Leukocyte Esterase (NEGATIVE) Urine RBC (0-2/HPF) Urine WBC (0-5/HPF) Ur Squamous Epith Cells Urine Bacteria (NEGATIVE) Ethyl Alcohol mg/dL 12/16/18 12/16/18 12/16/18 Range/Units 14:45 14:45 14:45 WBC (4.0-11.0) K/uL RBC (4.30-5.90) M/uL Hgb (12.0-16.0) g/dL Hct (36.0-46.0) % MCV (80.0-98.0) fL MCH (27.0-32.0) pg MCHC (31.0-37.0) g/dL RDW Std Deviation (28.0-62.0) fl RDW Coeff of Alfred (11.0-15.0) % Plt Count (150-400) K/uL MPV (7.40-12.00) fL Neut % (Auto) (48.0-80.0) % Lymph % (Auto) (16.0-40.0) % Stanton % (Auto) (0.0-15.0) % Eos % (Auto) (0.0-7.0) % Baso % (Auto) (0.0-1.5) % Neut # (Auto) (1.4-5.7) K/uL Lymph # (Auto) (0.6-2.4) K/uL Stanton # (Auto) (0.0-0.8) K/uL Eos # (Auto) (0.0-0.7) K/uL Baso # (Auto) (0.0-0.1) K/uL Nucleated RBC % /100WBC Nucleated RBCs # K/uL INR Sodium (136-145) mmol/L Potassium (3.5-5.1) mmol/L Chloride (98-107) mmol/L Carbon Dioxide (21.0-32.0) mmol/L BUN (7.0-18.0) mg/dL Creatinine (0.6-1.0) mg/dL Est Cr Clr Drug Dosing mL/min Estimated GFR (MDRD) ml/min Glucose (74-106) mg/dL Hemoglobin A1c 5.4 (4.5-6.2) % Calcium (8.5-10.1) mg/dL Phosphorus (2.6-4.7) mg/dL Magnesium (1.8-2.4) mg/dL Total Bilirubin (0.2-1.0) mg/dL AST (15-37) IU/L ALT (14-63) IU/L Alkaline Phosphatase (46-116) U/L Troponin I < 0.050 (0.000-0.056) ng/mL Total Protein (6.4-8.2) g/dL Albumin (3.4-5.0) g/dL Globulin (2.6-4.0) g/dL Albumin/Globulin Ratio (0.9-1.6) Urine Color Urine Appearance Urine pH (5.0-8.0) Ur Specific [place] (1.001-1.035) Urine Protein (NEGATIVE) mg/dL Urine Glucose (UA) (NEGATIVE) mg/dL Urine Ketones (NEGATIVE) mg/dL Urine Occult Blood (NEGATIVE) Urine Nitrite (NEGATIVE) Urine Bilirubin (NEGATIVE) Urine Urobilinogen (<2.0) EU/dL Ur Leukocyte Esterase (NEGATIVE) Urine RBC (0-2/HPF) Urine WBC (0-5/HPF) Ur Squamous Epith Cells Urine Bacteria (NEGATIVE) Ethyl Alcohol <3 mg/dL 12/16/18 12/16/18 Range/Units 14:45 15:40 WBC (4.0-11.0) K/uL RBC (4.30-5.90) M/uL Hgb (12.0-16.0) g/dL Hct (36.0-46.0) % MCV (80.0-98.0) fL MCH (27.0-32.0) pg MCHC (31.0-37.0) g/dL RDW Std Deviation (28.0-62.0) fl RDW Coeff of Alfred (11.0-15.0) % Plt Count (150-400) K/uL MPV (7.40-12.00) fL Neut % (Auto) (48.0-80.0) % Lymph % (Auto) (16.0-40.0) % Stanton % (Auto) (0.0-15.0) % Eos % (Auto) (0.0-7.0) % Baso % (Auto) (0.0-1.5) % Neut # (Auto) (1.4-5.7) K/uL Lymph # (Auto) (0.6-2.4) K/uL Stanton # (Auto) (0.0-0.8) K/uL Eos # (Auto) (0.0-0.7) K/uL Baso # (Auto) (0.0-0.1) K/uL Nucleated RBC % /100WBC Nucleated RBCs # K/uL INR Sodium (136-145) mmol/L Potassium (3.5-5.1) mmol/L Chloride (98-107) mmol/L Carbon Dioxide (21.0-32.0) mmol/L BUN (7.0-18.0) mg/dL Creatinine (0.6-1.0) mg/dL Est Cr Clr Drug Dosing mL/min Estimated GFR (MDRD) ml/min Glucose (74-106) mg/dL Hemoglobin A1c (4.5-6.2) % Calcium (8.5-10.1) mg/dL Phosphorus 2.6 (2.6-4.7) mg/dL Magnesium 1.9 (1.8-2.4) mg/dL Total Bilirubin (0.2-1.0) mg/dL AST (15-37) IU/L ALT (14-63) IU/L Alkaline Phosphatase (46-116) U/L Troponin I (0.000-0.056) ng/mL Total Protein (6.4-8.2) g/dL Albumin (3.4-5.0) g/dL Globulin (2.6-4.0) g/dL Albumin/Globulin Ratio (0.9-1.6) Urine Color YELLOW Urine Appearance SLT CLOUDY Urine pH 5.5 (5.0-8.0) Ur Specific [place] >= 1.030 (1.001-1.035) Urine Protein 30 H (NEGATIVE) mg/dL Urine Glucose (UA) NEGATIVE (NEGATIVE) mg/dL Urine Ketones >=80 (NEGATIVE) mg/dL Urine Occult Blood SMALL H (NEGATIVE) Urine Nitrite NEGATIVE (NEGATIVE) Urine Bilirubin NEGATIVE (NEGATIVE) Urine Urobilinogen 0.2 (<2.0) EU/dL Ur Leukocyte Esterase NEGATIVE (NEGATIVE) Urine RBC 0-2 (0-2/HPF) Urine WBC 0-2 (0-5/HPF) Ur Squamous Epith Cells MANY Urine Bacteria 1+ H (NEGATIVE) Ethyl Alcohol mg/dL Meds: Medications Generic Name Dose Route Start Last Admin Trade Name Freq PRN Reason Stop Dose Admin Albuterol 2.5 mg 12/16/18 17:38 Proventil Neb Soln NEB Q2H PRN Shortness Of Breath/wheezing Enoxaparin Sodium 40 mg 12/16/18 17:45 Lovenox SUBCUT Q24H NKECHI Folic Acid 1 mg 12/17/18 09:00 Folic Acid PO DAILY NKECHI Dextrose/Sodium Chloride 1,000 mls @ 125 mls/hr 12/16/18 17:15 Dextrose 5%-Normal Saline IV ASDIRECTED NKECHI Lorazepam 0 mg 12/16/18 17:58 Ativan IVPUSH Q4H PRN Agitation Protocol Nicotine 14 mg 12/16/18 17:45 Habitrol TRDERM DAILY NKECHI Ondansetron HCl 4 mg 06/03/19 17:38 Zofran Odt PO Q4H PRN nausea, able to take PO Temazepam 15 mg 12/16/18 17:38 Restoril PO BEDTIME PRN Sleep Thiamine HCl 100 mg 12/16/18 21:00 Vitamin B-1 PO BEDTIME NKECHI Discontinued Medications Generic Name Dose Route Start Last Admin Trade Name Freq PRN Reason Stop Dose Admin Albuterol/Ipratropium 3 ml 12/16/18 14:36 12/16/18 16:19 Duoneb 3.0-0.5 Mg/3 Ml NEB 12/16/18 14:37 3 ml ONETIME ONE Administration Sodium Chloride 1,000 mls @ 999 mls/hr 12/16/18 14:30 12/16/18 14:40 Normal Saline IV 12/16/18 15:30 999 mls/hr STAT ONE Administration Dextrose/Sodium Chloride 1,000 mls @ 125 mls/hr 12/16/18 17:15 Dextrose 5%-1/2 Ns IV ASDIRECTED NKECHI Thiamine HCl 100 mg/ Sodium 101 mls @ 202 mls/hr 12/16/18 17:56 Chloride IV 12/16/18 17:57 ONETIME ONE Ondansetron HCl 4 mg 12/16/18 14:30 12/16/18 14:40 Zofran IVPUSH 12/16/18 14:31 4 mg ONETIME ONE Administration Departure - Departure Time of Disposition: 18:19 Disposition: Refer to Observation Clinical Impression: Hyponatremia, Hypocalcemia, Hypoglycemia, Ketonuria - Discharge Information - My Orders Last 24 Hours: My Active Orders 12/16/18 14:13 EKG Documentation Completion [RC] STAT 12/16/18 14:36 RT Aerosol Therapy [RC] ASDIRECTED 12/16/18 17:14 Admission Status [Patient Status] [ADT] Stat 12/16/18 17:15 Dextrose 5%-0.9% NaCl [Dextrose 5%-Normal Saline] 1,000 ml IV ASDIRECTED - Assessment/Plan Last 24 Hours: My Active Orders 12/16/18 14:13 EKG Documentation Completion [RC] STAT 12/16/18 14:36 RT Aerosol Therapy [RC] ASDIRECTED 12/16/18 17:14 Admission Status [Patient Status] [ADT] Stat 12/16/18 17:15 Dextrose 5%-0.9% NaCl [Dextrose 5%-Normal Saline] 1,000 ml IV ASDIRECTED
[2018-12-16] MEDS: Albuterol/Ipratropium 3.0-0.5 MG/3 ML Neb Soln NEB ONE ×2 (15:16→16:19)
[2018-12-16 15:30] LABS: CHLORIDE,CL 87 mmol/L (98-107); SODIUM,NA 123 mmol/L (136-145)
--- NOTE | 2018-12-16 16:42 | CR ---
INDICATION: Shortness of breath. TECHNIQUE: Two views of the chest PA and lateral. COMPARISON: 02/29/2016. FINDINGS: Heart and mediastinum are normal. Lungs are clear. No consolidations or pleural effusions are identified. Trachea is midline. IMPRESSION: No evidence of acute disease. Dictated by Terry Choi MD @ Dec 16 2018 4:38PM Signed by Dr. Terry Choi @ Dec 16 2018 4:41PM
[2018-12-16] MEDS ORDERED: Dextrose 5%-0.45% NaCl 1,000 ML IV SCH (17:15)
[2018-12-16] MEDS ORDERED: Temazepam 15 MG Cap PO PRN (17:38)
[2018-12-16] MEDS ORDERED: Albuterol 0.083% 2.5 MG/3 ML Neb Soln NEB PRN (17:38)
[2018-12-16 17:45] LABS: HEMOGLOBIN A1C 5.4 % (4.5-6.2)
[2018-12-16] MEDS ORDERED: Thiamine 100 MG in Sodium Chloride 0.9% 100 ML IV ONE (17:56)
--- NOTE | 2018-12-16 18:13 | PCM.HP ---
H&P History of Present Illness - General Date of Service: 12/16/18 Admit Problem/Dx: Admission Diagnosis/Problem Admission Diagnosis/Problem Hyponatremia - History of Present Illness Initial Comments - Free Text/Narative: Aggie is a 48 y/o female with history of alcohol abuse who presented to the ER complaining of shortness of breath and nausea. Patient states that this morning she was feeling short of breath. She has a history of alcohol abuse. States she last drank alcohol about 1 week ago and says that when she drinks she drinks "like a sheet rocker". Denies any illicit drug use. Denies any alcohol withdrawal seizures. Smokes half a pack/day. Lives by herself. States she has not been feeling well so she hasn't been eating due to nausea. Denies any vomiting, chest pain, abdominal pain, dysuria, diarrhea. No hematemesis. Denies any medications. In the ED, patient was found to have an anion gap, metabolic acidosis. BGL 60. - Related Data Allergies/Adverse Reactions: Allergies Allergy/AdvReac Type Severity Reaction Status Date / Time acetaminophen Allergy Hives Verified 12/16/18 14:04 [From Lorcet (hydrocodone)] hydrocodone Allergy Hives Verified 12/16/18 14:04 [From Lorcet (hydrocodone)] Home Medications: Home Meds . [No Known Home Meds] 09/29/18 [History] Past Medical History HEENT History: Reports: None Cardiovascular History: Reports: Other (See Below) Other Cardiovascular History: "i'm on a heart pill because I smoke too much" Respiratory History: Reports: None Gastrointestinal History: Reports: Chronic Diarrhea Genitourinary History: Reports: Renal Calculus [employer] History: Reports: Musculoskeletal History: Reports: Fracture Other Musculoskeletal History: hx of fx left foot Neurological History: Reports: None Psychiatric History: Reports: Anxiety, Depression, PTSD, Suicide Attempt Endocrine/Metabolic History: Reports: None Hematologic History: Reports: None Immunologic History: Reports: None Oncologic (Cancer) History: Reports: None Dermatologic History: Reports: None - Infectious Disease History Infectious Disease History: Reports: Chicken Pox - Past Surgical History Head Surgeries/Procedures: Reports: None Cardiovascular Surgical History: Reports: None Respiratory Surgical History: Reports: Other (See Below) Other Respiratory Surgeries/Procedures: left lobectomy GI Surgical History: Reports: Appendectomy, Cholecystectomy, Colonoscopy Female Surgical History: Reports: Breast Implant, Section, Hysterectomy, Kidney stone extraction, Other (See Below) Other Female Surgeries/Procedures: right nephrectomy x 2 Musculoskeletal Surgical History: Reports: None Social & Family History - Family History Family Medical History: Noncontributory - Tobacco Use Smoking Status *Q: Current Every Day Smoker Years of Tobacco use: 10 Packs/Tins Daily: 0.5 - Caffeine Use Caffeine Use: Reports: None - Recreational Drug Use Recreational Drug Use: No H&P Review of Systems - Review of Systems: Review Of Systems: ROS reveals no pertinent complaints other than HPI. Exam - Exam Exam: See Below - Vital Signs Vital Signs: Last Vital Signs Temp 36.6 C 12/16/18 14:06 Pulse 126 H 12/16/18 17:34 Resp 20 12/16/18 17:34 BP 138/87 12/16/18 17:34 Pulse Ox 96 12/16/18 17:34 Weight: 58.967 kg - Exam General: Alert, Oriented, Cooperative HEENT: Conjunctiva Clear, Other (dry mucous membranes) Lungs: Clear to Auscultation, Normal Respiratory Effort. No: Crackles, Wheezing Cardiovascular: Regular Rhythm, Tachycardia GI/Abdominal Exam: Soft, Non-Tender, No Distention Back Exam: Normal Inspection. No: CVA Tenderness (L), CVA Tenderness (R) Extremities: Normal Inspection, No Pedal Edema Skin: Warm, Dry Neuro Extensive - Mental Status: Alert, Oriented x3 - Patient Data Lab Results Last 24 hrs: Laboratory Results - last 24 hr 12/16/18 12/16/18 12/16/18 Range/Units 14:45 14:45 14:45 WBC 9.12 (4.0-11.0) K/uL RBC 4.23 L (4.30-5.90) M/uL Hgb 13.9 (12.0-16.0) g/dL Hct 38.7 (36.0-46.0) % MCV 91.5 (80.0-98.0) fL MCH 32.9 H (27.0-32.0) pg MCHC 35.9 (31.0-37.0) g/dL RDW Std Deviation 44.6 (28.0-62.0) fl RDW Coeff of Alfred 13 (11.0-15.0) % Plt Count 218 (150-400) K/uL MPV 11.00 (7.40-12.00) fL Neut % (Auto) 77.7 (48.0-80.0) % Lymph % (Auto) 17.7 (16.0-40.0) % Cloud % (Auto) 4.5 (0.0-15.0) % Eos % (Auto) 0.0 (0.0-7.0) % Baso % (Auto) 0.1 (0.0-1.5) % Neut # (Auto) 7.1 H (1.4-5.7) K/uL Lymph # (Auto) 1.6 (0.6-2.4) K/uL Cloud # (Auto) 0.4 (0.0-0.8) K/uL Eos # (Auto) 0.0 (0.0-0.7) K/uL Baso # (Auto) 0.0 (0.0-0.1) K/uL Nucleated RBC % 0.0 /100WBC Nucleated RBCs # 0 K/uL INR 0.92 Sodium 123 L (136-145) mmol/L Potassium 4.4 (3.5-5.1) mmol/L Chloride 87 L (98-107) mmol/L Carbon Dioxide 10.9 L (21.0-32.0) mmol/L BUN 14 (7.0-18.0) mg/dL Creatinine 0.7 (0.6-1.0) mg/dL Est Cr Clr Drug Dosing 71.36 mL/min Estimated GFR (MDRD) > 60.0 ml/min Glucose 68 L (74-106) mg/dL Hemoglobin A1c (4.5-6.2) % Calcium 8.0 L (8.5-10.1) mg/dL Total Bilirubin 0.6 (0.2-1.0) mg/dL AST 65 H (15-37) IU/L ALT 49 (14-63) IU/L Alkaline Phosphatase 87 (46-116) U/L Troponin I (0.000-0.056) ng/mL Total Protein 7.8 (6.4-8.2) g/dL Albumin 3.8 (3.4-5.0) g/dL Globulin 4.0 (2.6-4.0) g/dL Albumin/Globulin Ratio 0.9 (0.9-1.6) Urine Color Urine Appearance Urine pH (5.0-8.0) Ur Specific [place] (1.001-1.035) Urine Protein (NEGATIVE) mg/dL Urine Glucose (UA) (NEGATIVE) mg/dL Urine Ketones (NEGATIVE) mg/dL Urine Occult Blood (NEGATIVE) Urine Nitrite (NEGATIVE) Urine Bilirubin (NEGATIVE) Urine Urobilinogen (<2.0) EU/dL Ur Leukocyte Esterase (NEGATIVE) Urine RBC (0-2/HPF) Urine WBC (0-5/HPF) Ur Squamous Epith Cells Urine Bacteria (NEGATIVE) Ethyl Alcohol mg/dL 12/16/18 12/16/18 12/16/18 Range/Units 14:45 14:45 14:45 WBC (4.0-11.0) K/uL RBC (4.30-5.90) M/uL Hgb (12.0-16.0) g/dL Hct (36.0-46.0) % MCV (80.0-98.0) fL MCH (27.0-32.0) pg MCHC (31.0-37.0) g/dL RDW Std Deviation (28.0-62.0) fl RDW Coeff of Alfred (11.0-15.0) % Plt Count (150-400) K/uL MPV (7.40-12.00) fL Neut % (Auto) (48.0-80.0) % Lymph % (Auto) (16.0-40.0) % Cloud % (Auto) (0.0-15.0) % Eos % (Auto) (0.0-7.0) % Baso % (Auto) (0.0-1.5) % Neut # (Auto) (1.4-5.7) K/uL Lymph # (Auto) (0.6-2.4) K/uL Cloud # (Auto) (0.0-0.8) K/uL Eos # (Auto) (0.0-0.7) K/uL Baso # (Auto) (0.0-0.1) K/uL Nucleated RBC % /100WBC Nucleated RBCs # K/uL INR Sodium (136-145) mmol/L Potassium (3.5-5.1) mmol/L Chloride (98-107) mmol/L Carbon Dioxide (21.0-32.0) mmol/L BUN (7.0-18.0) mg/dL Creatinine (0.6-1.0) mg/dL Est Cr Clr Drug Dosing mL/min Estimated GFR (MDRD) ml/min Glucose (74-106) mg/dL Hemoglobin A1c 5.4 (4.5-6.2) % Calcium (8.5-10.1) mg/dL Total Bilirubin (0.2-1.0) mg/dL AST (15-37) IU/L ALT (14-63) IU/L Alkaline Phosphatase (46-116) U/L Troponin I < 0.050 (0.000-0.056) ng/mL Total Protein (6.4-8.2) g/dL Albumin (3.4-5.0) g/dL Globulin (2.6-4.0) g/dL Albumin/Globulin Ratio (0.9-1.6) Urine Color Urine Appearance Urine pH (5.0-8.0) Ur Specific [place] (1.001-1.035) Urine Protein (NEGATIVE) mg/dL Urine Glucose (UA) (NEGATIVE) mg/dL Urine Ketones (NEGATIVE) mg/dL Urine Occult Blood (NEGATIVE) Urine Nitrite (NEGATIVE) Urine Bilirubin (NEGATIVE) Urine Urobilinogen (<2.0) EU/dL Ur Leukocyte Esterase (NEGATIVE) Urine RBC (0-2/HPF) Urine WBC (0-5/HPF) Ur Squamous Epith Cells Urine Bacteria (NEGATIVE) Ethyl Alcohol <3 mg/dL 12/16/18 Range/Units 15:40 WBC (4.0-11.0) K/uL RBC (4.30-5.90) M/uL Hgb (12.0-16.0) g/dL Hct (36.0-46.0) % MCV (80.0-98.0) fL MCH (27.0-32.0) pg MCHC (31.0-37.0) g/dL RDW Std Deviation (28.0-62.0) fl RDW Coeff of Alfred (11.0-15.0) % Plt Count (150-400) K/uL MPV (7.40-12.00) fL Neut % (Auto) (48.0-80.0) % Lymph % (Auto) (16.0-40.0) % Cloud % (Auto) (0.0-15.0) % Eos % (Auto) (0.0-7.0) % Baso % (Auto) (0.0-1.5) % Neut # (Auto) (1.4-5.7) K/uL Lymph # (Auto) (0.6-2.4) K/uL Cloud # (Auto) (0.0-0.8) K/uL Eos # (Auto) (0.0-0.7) K/uL Baso # (Auto) (0.0-0.1) K/uL Nucleated RBC % /100WBC Nucleated RBCs # K/uL INR Sodium (136-145) mmol/L Potassium (3.5-5.1) mmol/L Chloride (98-107) mmol/L Carbon Dioxide (21.0-32.0) mmol/L BUN (7.0-18.0) mg/dL Creatinine (0.6-1.0) mg/dL Est Cr Clr Drug Dosing mL/min Estimated GFR (MDRD) ml/min Glucose (74-106) mg/dL Hemoglobin A1c (4.5-6.2) % Calcium (8.5-10.1) mg/dL Total Bilirubin (0.2-1.0) mg/dL AST (15-37) IU/L ALT (14-63) IU/L Alkaline Phosphatase (46-116) U/L Troponin I (0.000-0.056) ng/mL Total Protein (6.4-8.2) g/dL Albumin (3.4-5.0) g/dL Globulin (2.6-4.0) g/dL Albumin/Globulin Ratio (0.9-1.6) Urine Color YELLOW Urine Appearance SLT CLOUDY Urine pH 5.5 (5.0-8.0) Ur Specific [place] >= 1.030 (1.001-1.035) Urine Protein 30 H (NEGATIVE) mg/dL Urine Glucose (UA) NEGATIVE (NEGATIVE) mg/dL Urine Ketones >=80 (NEGATIVE) mg/dL Urine Occult Blood SMALL H (NEGATIVE) Urine Nitrite NEGATIVE (NEGATIVE) Urine Bilirubin NEGATIVE (NEGATIVE) Urine Urobilinogen 0.2 (<2.0) EU/dL Ur Leukocyte Esterase NEGATIVE (NEGATIVE) Urine RBC 0-2 (0-2/HPF) Urine WBC 0-2 (0-5/HPF) Ur Squamous Epith Cells MANY Urine Bacteria 1+ H (NEGATIVE) Ethyl Alcohol mg/dL Result Diagrams: 12/16/18 14:45 12/16/18 14:45 Problem List Initiated/Reviewed/Updated: Yes Orders Last 24hrs: Active Orders 24 hr Category Date Time Status Admission Status [Patient Status] [ADT] Stat ADT 12/16/18 17:14 Active EKG Documentation Completion [RC] STAT Care 12/16/18 14:13 Active Oxygen Therapy [RC] PRN Care 12/16/18 17:38 Ordered RT Aerosol Therapy [RC] ASDIRECTED Care 12/16/18 14:36 Active RT Aerosol Therapy [RC] ASDIRECTED Care 12/16/18 17:41 Ordered Up ad Elana [RC] ASDIRECTED Care 12/16/18 17:38 Ordered VTE/DVT Education [RC] PER UNIT ROUTINE Care 12/16/18 17:38 Ordered Vital Signs [RC] Q4H Care 12/16/18 17:38 Ordered Regular Diet [DIET] Diet 12/16/18 Breakfast Ordered CBC W/O DIFF,HEMOGRAM [HEME] AM Lab 12/17/18 05:11 Ordered COMPREHENSIVE METABOLIC PN,CMP [CHEM] AM Lab 12/17/18 05:11 Ordered MAGNESIUM [CHEM] Routine Lab 12/16/18 18:02 Ordered OSMOLALITY - URINE Routine Lab 12/16/18 18:01 Ordered PHOSPHORUS [CHEM] Routine Lab 12/16/18 18:02 Ordered POTASSIUM,URINE RANDOM [URCHEM] Routine Lab 12/16/18 18:00 Ordered SALICYLATE [CHEM] Routine Lab 12/16/18 18:06 Ordered SODIUM,URINE RANDOM [URCHEM] Routine Lab 12/16/18 18:00 Ordered UREA NITROGEN, URINE Routine Lab 12/16/18 18:00 Ordered Albuterol [Proventil Neb Soln] Med 12/16/18 17:38 Active 2.5 mg NEB Q2H PRN Dextrose 5%-0.9% NaCl [Dextrose 5%-Normal Saline] 1,000 Med 12/16/18 17:15 Active ml IV ASDIRECTED Enoxaparin [Lovenox] Med 12/16/18 17:45 Active 40 mg SUBCUT Q24H Folic Acid Med 12/17/18 09:00 Ordered 1 mg PO DAILY LORazepam [Ativan] Med 12/16/18 17:58 Ordered See Protocol IVPUSH Q4H PRN Nicotine [Habitrol] Med 12/16/18 17:45 Active 14 mg TRDERM DAILY Ondansetron [Zofran ODT] Med 12/16/18 17:38 Active 4 mg PO Q4H PRN Temazepam [Restoril] Med 12/16/18 17:38 Active 15 mg PO BEDTIME PRN Thiamine [Vitamin B-1] Med 12/16/18 21:00 Ordered 100 mg PO BEDTIME Resuscitation Status Routine Resus Stat 12/16/18 17:38 Ordered Medication Orders Albuterol (Proventil Neb Soln) 2.5 mg NEB Q2H PRN PRN Reason: Shortness Of Breath/wheezing Enoxaparin Sodium (Lovenox) 40 mg SUBCUT Q24H [facility] Folic Acid (Folic Acid) 1 mg PO DAILY [facility] Dextrose/Sodium Chloride (Dextrose 5%-Normal Saline) 1,000 mls @ 125 mls/hr IV ASDIRECTED [facility] Lorazepam (Ativan) 0 mg IVPUSH Q4H PRN; Protocol PRN Reason: Agitation Nicotine (Habitrol) 14 mg TRDERM DAILY [facility] Ondansetron HCl (Zofran Odt) 4 mg PO Q4H PRN PRN Reason: nausea, able to take PO Temazepam (Restoril) 15 mg PO BEDTIME PRN PRN Reason: Sleep Thiamine HCl (Vitamin B-1) 100 mg PO BEDTIME [facility] Assessment/Plan Comment:: A: 1. Alcoholic ketoacidosis 2. Hyponatremia 3. Dyspnea 4. Alcohol abuse 5. Tobacco abuse P: 1. Admit as observation to medical floor. 2. Vitals, I/O per floor routine. 3. Activity as tolerated 4. Diet: regular diet 5. DVT prophylaxis: lovenox 6. Code Status: FULL CODE 1. Alcoholic ketoacidosis: ordered thiamine and folic acid. CIWA monitoring with Lorazepam PRN. Continue D5NS. Regular diet. 2. Hyponatremia- will check urine studies. Continue D5NS. Will recheck Na. Dispo: 1-2 days.
[2018-12-16] MEDS: Dextrose 5%-0.9% NaCl 1,000 ML IV SCH (18:26)
[2018-12-16] MEDS: Nicotine 14 MG/24 Hr Patch TRDERM SCH (20:19)
[2018-12-16] MEDS: Thiamine 100 MG Tab PO SCH (20:27)
[2018-12-16] MEDS: Ondansetron 4 MG Tab.DIS PO PRN (20:27)
[2018-12-16] MEDS: Enoxaparin 40 MG/0.4 ML Syringe SUBCUT SCH (20:28)
[2018-12-16] MEDS: LORazepam 2 MG/ML SDV IVPUSH PRN (20:38)
[2018-12-16 22:07] LABS: CHLORIDE,CL 93 mmol/L (98-107); SODIUM,NA 125 mmol/L (136-145)
[2018-12-17] MEDS: Dextrose 5%-0.9% NaCl 1,000 ML IV SCH (01:52)
[2018-12-17 03:47] LABS: CHLORIDE,CL 98 mmol/L (98-107); SODIUM,NA 130 mmol/L (136-145)
[2018-12-17] MEDS: LORazepam 2 MG/ML SDV IVPUSH PRN (06:11)
[2018-12-17] MEDS ORDERED: Potassium Chloride 20 MEQ Tab.ER PO ONE (08:30)
[2018-12-17] MEDS: Folic Acid 1 MG Tab PO SCH (09:39)
[2018-12-17] MEDS: Nicotine 14 MG/24 Hr Patch TRDERM SCH (09:39)
[2018-12-17] MEDS ORDERED: Iopamidol 755 MG/ML 500 ML Multipack Bottle IVPUSH STA (10:46)
--- NOTE | 2018-12-17 11:34 | CT ---
INDICATION: Dyspnea and pleuritic pain. Rule out pulmonary embolism. TECHNIQUE: Volumetric helical scanning of the thorax was performed during infusion of 50 cc of Isovue 370 contrast material IV, timing optimized for pulmonary arterial opacification. Coronal and sagittal reconstructions were obtained. COMPARISON: None. FINDINGS: The images are of acceptable quality and demonstrate uniform vascular enhancement within the pulmonary arteries. No pulmonary arterial filling defect is identified. The heart size is normal. Calcified coronary arterial plaque is demonstrated. The lungs are clear except for subsegmental atelectasis or scarring in the posterior right lower lobe base. No pleural effusion is demonstrated. No airway abnormality is evident. No mediastinal or hilar lymphadenopathy is demonstrated. Images of the upper abdomen demonstrate fatty changes liver, a presumed 2.5 cm left hepatic lobe cyst as well as colonic diverticulosis. IMPRESSION: 1. Negative for pulmonary embolism. 2. Lungs clear except for subsegmental atelectasis or scarring in the posterior right lower lobe base. 3. Coronary artery disease. 4. Fatty liver and presumed 2.5 cm left hepatic lobe cyst. 5. Colonic diverticulosis. Please note that all CT scans at this facility use dose modulation, iterative reconstruction, and/or weight-based dosing when appropriate to reduce radiation dose to as low as reasonably achievable. Dictated by Cesar Lozada MD @ Dec 17 2018 11:26AM Signed by Dr. Cesar Lozada @ Dec 17 2018 11:33AM
[2018-12-17] MEDS: Ondansetron 4 MG Tab.DIS PO PRN ×2 (14:46→20:26)
[2018-12-17] MEDS: Enoxaparin 40 MG/0.4 ML Syringe SUBCUT SCH (18:37)
--- NOTE | 2018-12-17 18:49 | PCM.PN ---
- General Info Date of Service: 12/17/18 Subjective Update: No acute events overnight. Patient slept well. This morning she denies any chest pain but still has mild pleuritic chest pain. O2 sating high 90's on room air. - Patient Data Vitals - Most Recent: Last Vital Signs Temp 36.8 C 12/17/18 16:00 Pulse 109 H 12/17/18 16:00 Resp 14 12/17/18 16:00 BP 109/65 12/17/18 16:00 Pulse Ox 95 12/17/18 16:00 Weight - Most Recent: 62.823 kg I&O - Last 24 Hours: Intake & Output 12/17/18 12/17/18 12/17/18 06:59 14:59 22:59 Intake Total 200 670 Output Total 1100 Balance 200 -430 Lab Results Last 24 Hours: Laboratory Results - last 24 hr 12/16/18 12/16/18 12/16/18 Range/Units 20:15 21:30 21:30 WBC (4.0-11.0) K/uL RBC (4.30-5.90) M/uL Hgb (12.0-16.0) g/dL Hct (36.0-46.0) % MCV (80.0-98.0) fL MCH (27.0-32.0) pg MCHC (31.0-37.0) g/dL RDW Std Deviation (28.0-62.0) fl RDW Coeff of Alfred (11.0-15.0) % Plt Count (150-400) K/uL MPV (7.40-12.00) fL Nucleated RBC % /100WBC Nucleated RBCs # K/uL Lactate 2.7 H (0.20-2.00) mmol/L Sodium 125 L (136-145) mmol/L Potassium 3.7 (3.5-5.1) mmol/L Chloride 93 L (98-107) mmol/L Carbon Dioxide 14.9 L (21.0-32.0) mmol/L BUN 13 (7.0-18.0) mg/dL Creatinine 0.7 (0.6-1.0) mg/dL Est Cr Clr Drug Dosing 71.36 mL/min Estimated GFR (MDRD) > 60.0 ml/min Glucose 175 H (74-106) mg/dL POC Glucose 188 H (60-110) mg/dL Calcium 7.4 L (8.5-10.1) mg/dL Total Bilirubin (0.2-1.0) mg/dL AST (15-37) IU/L ALT (14-63) IU/L Alkaline Phosphatase (46-116) U/L Troponin I < 0.050 (0.000-0.056) ng/mL Total Protein (6.4-8.2) g/dL Albumin (3.4-5.0) g/dL Globulin (2.6-4.0) g/dL Albumin/Globulin Ratio (0.9-1.6) 12/17/18 12/17/18 12/17/18 Range/Units 03:12 03:12 03:12 WBC 6.80 (4.0-11.0) K/uL RBC 3.47 L (4.30-5.90) M/uL Hgb 11.2 L (12.0-16.0) g/dL Hct 31.4 L (36.0-46.0) % MCV 90.5 (80.0-98.0) fL MCH 32.3 H (27.0-32.0) pg MCHC 35.7 (31.0-37.0) g/dL RDW Std Deviation 43.0 (28.0-62.0) fl RDW Coeff of Alfred 13 (11.0-15.0) % Plt Count 140 L (150-400) K/uL MPV 9.80 (7.40-12.00) fL Nucleated RBC % 0.0 /100WBC Nucleated RBCs # 0 K/uL Lactate (0.20-2.00) mmol/L Sodium 130 L (136-145) mmol/L Potassium 3.4 L (3.5-5.1) mmol/L Chloride 98 (98-107) mmol/L Carbon Dioxide 24.4 (21.0-32.0) mmol/L BUN 12 (7.0-18.0) mg/dL Creatinine 0.7 (0.6-1.0) mg/dL Est Cr Clr Drug Dosing 71.36 mL/min Estimated GFR (MDRD) > 60.0 ml/min Glucose 138 H (74-106) mg/dL POC Glucose (60-110) mg/dL Calcium 8.1 L (8.5-10.1) mg/dL Total Bilirubin 0.7 (0.2-1.0) mg/dL AST 55 H (15-37) IU/L ALT 44 (14-63) IU/L Alkaline Phosphatase 65 (46-116) U/L Troponin I < 0.050 (0.000-0.056) ng/mL Total Protein 6.0 L (6.4-8.2) g/dL Albumin 3.0 L (3.4-5.0) g/dL Globulin 3.0 (2.6-4.0) g/dL Albumin/Globulin Ratio 1.0 (0.9-1.6) 12/17/18 12/17/18 12/17/18 Range/Units 03:12 11:42 18:25 WBC (4.0-11.0) K/uL RBC (4.30-5.90) M/uL Hgb (12.0-16.0) g/dL Hct (36.0-46.0) % MCV (80.0-98.0) fL MCH (27.0-32.0) pg MCHC (31.0-37.0) g/dL RDW Std Deviation (28.0-62.0) fl RDW Coeff of Alfred (11.0-15.0) % Plt Count (150-400) K/uL MPV (7.40-12.00) fL Nucleated RBC % /100WBC Nucleated RBCs # K/uL Lactate 0.7 (0.20-2.00) mmol/L Sodium (136-145) mmol/L Potassium (3.5-5.1) mmol/L Chloride (98-107) mmol/L Carbon Dioxide (21.0-32.0) mmol/L BUN (7.0-18.0) mg/dL Creatinine (0.6-1.0) mg/dL Est Cr Clr Drug Dosing mL/min Estimated GFR (MDRD) ml/min Glucose (74-106) mg/dL POC Glucose 113 H 97 (60-110) mg/dL Calcium (8.5-10.1) mg/dL Total Bilirubin (0.2-1.0) mg/dL AST (15-37) IU/L ALT (14-63) IU/L Alkaline Phosphatase (46-116) U/L Troponin I (0.000-0.056) ng/mL Total Protein (6.4-8.2) g/dL Albumin (3.4-5.0) g/dL Globulin (2.6-4.0) g/dL Albumin/Globulin Ratio (0.9-1.6) Med Orders - Current: Current Medications Albuterol (Proventil Neb Soln) 2.5 mg NEB Q2H PRN PRN Reason: Shortness Of Breath/wheezing Enoxaparin Sodium (Lovenox) 40 mg SUBCUT Q24H [facility] Last Admin: 12/17/18 18:37 Dose: 40 mg Folic Acid (Folic Acid) 1 mg PO DAILY [facility] Last Admin: 12/17/18 09:39 Dose: 1 mg Lorazepam (Ativan) 0 mg IVPUSH Q4H PRN; Protocol PRN Reason: Agitation Last Admin: 12/17/18 06:11 Dose: 2 mg Nicotine (Habitrol) 14 mg TRDERM DAILY [facility] Last Admin: 12/17/18 09:39 Dose: Not Given Ondansetron HCl (Zofran Odt) 4 mg PO Q4H PRN PRN Reason: nausea, able to take PO Last Admin: 12/17/18 14:46 Dose: 4 mg Temazepam (Restoril) 15 mg PO BEDTIME PRN PRN Reason: Sleep Thiamine HCl (Vitamin B-1) 100 mg PO BEDTIME [facility] Last Admin: 12/16/18 20:27 Dose: Not Given Discontinued Medications Albuterol/Ipratropium (Duoneb 3.0-0.5 Mg/3 Ml) 3 ml NEB ONETIME ONE Stop: 12/16/18 14:37 Last Admin: 12/16/18 16:19 Dose: 3 ml Sodium Chloride (Normal Saline) 1,000 mls @ 999 mls/hr IV STAT ONE Stop: 12/16/18 15:30 Last Admin: 12/16/18 14:40 Dose: 999 mls/hr Dextrose/Sodium Chloride (Dextrose 5%-1/2 Ns) 1,000 mls @ 125 mls/hr IV ASDIRECTED [facility] Dextrose/Sodium Chloride (Dextrose 5%-Normal Saline) 1,000 mls @ 125 mls/hr IV ASDIRECTED [facility] Last Admin: 12/17/18 01:52 Dose: 125 mls/hr Thiamine HCl 100 mg/ Sodium (Chloride) 101 mls @ 202 mls/hr IV ONETIME ONE Stop: 12/16/18 17:57 Last Admin: 12/16/18 20:38 Dose: 202 mls/hr Iopamidol (Isovue Multipack-370 (76%)) 50 ml IVPUSH ONETIME STA Stop: 12/17/18 10:47 Last Admin: 12/17/18 10:48 Dose: 50 ml Ondansetron HCl (Zofran) 4 mg IVPUSH ONETIME ONE Stop: 12/16/18 14:31 Last Admin: 12/16/18 14:40 Dose: 4 mg Potassium Chloride (Klor-Con M20) 40 meq PO ONETIME ONE Stop: 12/17/18 08:31 Last Admin: 12/17/18 09:38 Dose: 40 meq - Exam General: Alert, Oriented, Cooperative, No Acute Distress Lungs: Clear to Auscultation, Normal Respiratory Effort. No: Crackles, Wheezing Cardiovascular: Regular Rate, Regular Rhythm GI/Abdominal Exam: Normal Bowel Sounds, Soft, Non-Tender Extremities: Normal Inspection, No Pedal Edema Skin: Warm, Dry - Problem List Review Problem List Initiated/Reviewed/Updated: Yes - My Orders Last 24 Hours: My Active Orders 12/16/18 17:41 RT Aerosol Therapy [RC] ASDIRECTED 12/16/18 17:45 Enoxaparin [Lovenox] 40 mg SUBCUT Q24H Nicotine [Habitrol] 14 mg TRDERM DAILY 12/16/18 17:58 LORazepam [Ativan] See Protocol IVPUSH Q4H PRN 12/16/18 18:38 Blood Glucose Check, Bedside [RC] QIDACANDBED 12/16/18 21:00 Thiamine [Vitamin B-1] 100 mg PO BEDTIME 12/17/18 09:00 Folic Acid 1 mg PO DAILY - Plan Plan:: A: 1. Alcoholic ketoacidosis, resolved 2. Hyponatremia, improving 3. Dyspnea 4. Alcohol abuse 5. Tobacco abuse P: 1. Dyspnea, unknown etiology. Ordered CT angio to evaluate for PE but it was negative. Will continue to monitor. 2. Hyponatremia, improving. Suspect that this may be due to beer potomania due to her history of alcohol consumption. Discontinued IV fluids and will monitor. 3. Alcohol abuse- CIWA monitoring and lorazepam PRN for CIWA score>10. not currently withdrawing. Dispo: likely dc tomorrow.
[2018-12-17] MEDS: Thiamine 100 MG Tab PO SCH (20:26)
[2018-12-18 06:01] LABS: CHLORIDE,CL 99 mmol/L (98-107); SODIUM,NA 132 mmol/L (136-145)
[2018-12-18 08:52] VITALS: BP 116/77
[2018-12-18] MEDS: Folic Acid 1 MG Tab PO SCH (08:54)
[2018-12-18] MEDS: Nicotine 14 MG/24 Hr Patch TRDERM SCH (09:01)
--- NOTE | 2018-12-18 11:15 | PCM.DCSUM1 ---
<Chriss Barrera - Last Filed: 12/18/18 16:02> Discharge Summary - Hospital Course Free Text/Narrative:: Aggie Sultana is a 48 y/o female with history of alcohol abuse who was admitted for alcoholic ketoacidosis and hyponatremia. Her ketoacidosis resolved with D5NS and her hyponatremia normalized during the course of her hospitalization. CIWA monitoring was implemented but she did not show withdrawal signs. In addition, she was complaining of shortness of breath and cardiac work up was negative and CT chest was negative for PE. Her chest pain was attributed to costochondritis. At time of discharge patient was tolerating PO intake and was feeling better. She was prescribed diclofenac for her chest pain and advised to abstain from alcohol and any mood altering substances. She will need to follow-up with her PCP. - Discharge Data Discharge Date: 12/18/18 Discharge Disposition: Home, Self-Care 01 Condition: Fair - Patient Instructions Diet: Regular Diet as Tolerated Activity: As Tolerated Notify Provider of: Fever, Increased Pain, Swelling and Redness, Nausea and/or Vomiting Other/Special Instructions: Please abstain from alcohol and any mind altering substances. - Discharge Plan *PRESCRIPTION DRUG MONITORING PROGRAM REVIEWED*: Not Applicable *COPY OF PRESCRIPTION DRUG MONITORING REPORT IN PATIENT SUSANNE: Not Applicable Prescriptions/Med Rec: Diclofenac Sodium [Diclofenac Sodium ER] 100 mg PO DAILY PRN 30 Days #30 tab.sr.24h PRN Reason: Pain Home Medications: Home Meds Diclofenac Sodium [Diclofenac Sodium ER] 100 mg PO DAILY PRN 30 Days #30 tab.sr.24h 12/18/18 [Rx] Patient Handouts: Hyponatremia, [id number], Diclofenac sodium extended- release tablets Referrals: Enedelia Monzon MD [Physician] - 12/30/18 11:00 am - Discharge Summary/Plan Comment DC Time >30 min.: No - Patient Data Vitals - Most Recent: Last Vital Signs Temp 36.9 C 12/18/18 08:51 Pulse 80 12/18/18 08:51 Resp 16 12/18/18 08:51 BP 116/77 12/18/18 08:51 Pulse Ox 97 12/18/18 08:51 Weight - Most Recent: 62.823 kg I&O - Last 24 hours: Intake & Output 12/17/18 12/18/18 12/18/18 22:59 06:59 14:59 Intake Total 670 500 Output Total 1100 900 Balance -430 -400 Lab Results - Last 24 hrs: Laboratory Results - last 24 hr 12/16/18 12/16/18 12/17/18 Range/Units 15:40 15:40 11:42 Sodium (136-145) mmol/L Potassium (3.5-5.1) mmol/L Chloride (98-107) mmol/L Carbon Dioxide (21.0-32.0) mmol/L BUN (7.0-18.0) mg/dL Creatinine (0.6-1.0) mg/dL Est Cr Clr Drug Dosing mL/min Estimated GFR (MDRD) ml/min Glucose (74-106) mg/dL POC Glucose 113 H (60-110) mg/dL Calcium (8.5-10.1) mg/dL Total Bilirubin (0.2-1.0) mg/dL AST (15-37) IU/L ALT (14-63) IU/L Alkaline Phosphatase (46-116) U/L Total Protein (6.4-8.2) g/dL Albumin (3.4-5.0) g/dL Globulin (2.6-4.0) g/dL Albumin/Globulin Ratio (0.9-1.6) Urine Osmolality 608 (300-900) mosm/kg Ur Urea Nitrogen Conc 494 mg/dL 12/17/18 12/17/18 12/18/18 Range/Units 18:25 21:07 04:50 Sodium 132 L (136-145) mmol/L Potassium 3.4 L (3.5-5.1) mmol/L Chloride 99 (98-107) mmol/L Carbon Dioxide 24.0 (21.0-32.0) mmol/L BUN 11 (7.0-18.0) mg/dL Creatinine 0.5 L (0.6-1.0) mg/dL Est Cr Clr Drug Dosing 99.91 mL/min Estimated GFR (MDRD) > 60.0 ml/min Glucose 100 (74-106) mg/dL POC Glucose 97 130 H (60-110) mg/dL Calcium 8.6 (8.5-10.1) mg/dL Total Bilirubin 0.6 (0.2-1.0) mg/dL AST 36 (15-37) IU/L ALT 34 (14-63) IU/L Alkaline Phosphatase 65 (46-116) U/L Total Protein 5.9 L (6.4-8.2) g/dL Albumin 2.8 L (3.4-5.0) g/dL Globulin 3.1 (2.6-4.0) g/dL Albumin/Globulin Ratio 0.9 (0.9-1.6) Urine Osmolality (300-900) mosm/kg Ur Urea Nitrogen Conc mg/dL 12/18/18 Range/Units 06:06 Sodium (136-145) mmol/L Potassium (3.5-5.1) mmol/L Chloride (98-107) mmol/L Carbon Dioxide (21.0-32.0) mmol/L BUN (7.0-18.0) mg/dL Creatinine (0.6-1.0) mg/dL Est Cr Clr Drug Dosing mL/min Estimated GFR (MDRD) ml/min Glucose (74-106) mg/dL POC Glucose 138 H (60-110) mg/dL Calcium (8.5-10.1) mg/dL Total Bilirubin (0.2-1.0) mg/dL AST (15-37) IU/L ALT (14-63) IU/L Alkaline Phosphatase (46-116) U/L Total Protein (6.4-8.2) g/dL Albumin (3.4-5.0) g/dL Globulin (2.6-4.0) g/dL Albumin/Globulin Ratio (0.9-1.6) Urine Osmolality (300-900) mosm/kg Ur Urea Nitrogen Conc mg/dL Med Orders - Current: Current Medications Albuterol (Proventil Neb Soln) 2.5 mg NEB Q2H PRN PRN Reason: Shortness Of Breath/wheezing Enoxaparin Sodium (Lovenox) 40 mg SUBCUT Q24H [facility] Last Admin: 12/17/18 18:37 Dose: 40 mg Folic Acid (Folic Acid) 1 mg PO DAILY [facility] Last Admin: 12/18/18 08:54 Dose: 1 mg Lorazepam (Ativan) 0 mg IVPUSH Q4H PRN; Protocol PRN Reason: Agitation Last Admin: 12/17/18 06:11 Dose: 2 mg Nicotine (Habitrol) 14 mg TRDERM DAILY [facility] Last Admin: 12/18/18 09:01 Dose: Not Given Ondansetron HCl (Zofran Odt) 4 mg PO Q4H PRN PRN Reason: nausea, able to take PO Last Admin: 12/17/18 20:26 Dose: 4 mg Temazepam (Restoril) 15 mg PO BEDTIME PRN PRN Reason: Sleep Thiamine HCl (Vitamin B-1) 100 mg PO BEDTIME [facility] Last Admin: 12/17/18 20:26 Dose: 100 mg Discontinued Medications Albuterol/Ipratropium (Duoneb 3.0-0.5 Mg/3 Ml) 3 ml NEB ONETIME ONE Stop: 12/16/18 14:37 Last Admin: 12/16/18 16:19 Dose: 3 ml Sodium Chloride (Normal Saline) 1,000 mls @ 999 mls/hr IV STAT ONE Stop: 12/16/18 15:30 Last Admin: 12/16/18 14:40 Dose: 999 mls/hr Dextrose/Sodium Chloride (Dextrose 5%-1/2 Ns) 1,000 mls @ 125 mls/hr IV ASDIRECTED [facility] Dextrose/Sodium Chloride (Dextrose 5%-Normal Saline) 1,000 mls @ 125 mls/hr IV ASDIRECTED [facility] Last Admin: 12/17/18 01:52 Dose: 125 mls/hr Thiamine HCl 100 mg/ Sodium (Chloride) 101 mls @ 202 mls/hr IV ONETIME ONE Stop: 12/16/18 17:57 Last Admin: 12/16/18 20:38 Dose: 202 mls/hr Iopamidol (Isovue Multipack-370 (76%)) 50 ml IVPUSH ONETIME STA Stop: 12/17/18 10:47 Last Admin: 12/17/18 10:48 Dose: 50 ml Ondansetron HCl (Zofran) 4 mg IVPUSH ONETIME ONE Stop: 12/16/18 14:31 Last Admin: 12/16/18 14:40 Dose: 4 mg Potassium Chloride (Klor-Con M20) 40 meq PO ONETIME ONE Stop: 12/17/18 08:31 Last Admin: 12/17/18 09:38 Dose: 40 meq <Chino Treviño - Last Filed: 12/22/18 18:50> - Patient Data Vitals - Most Recent: Last Vital Signs Temp 36.9 C 12/18/18 08:51 Pulse 80 12/18/18 08:51 Resp 16 12/18/18 08:51 BP 116/77 12/18/18 08:51 Pulse Ox 97 12/18/18 08:51 Med Orders - Current: Current Medications Discontinued Medications Albuterol (Proventil Neb Soln) 2.5 mg NEB Q2H PRN PRN Reason: Shortness Of Breath/wheezing Albuterol/Ipratropium (Duoneb 3.0-0.5 Mg/3 Ml) 3 ml NEB ONETIME ONE Stop: 12/16/18 14:37 Last Admin: 12/16/18 16:19 Dose: 3 ml Enoxaparin Sodium (Lovenox) 40 mg SUBCUT Q24H [facility] Last Admin: 12/17/18 18:37 Dose: 40 mg Folic Acid (Folic Acid) 1 mg PO DAILY [facility] Last Admin: 12/18/18 08:54 Dose: 1 mg Sodium Chloride (Normal Saline) 1,000 mls @ 999 mls/hr IV STAT ONE Stop: 12/16/18 15:30 Last Admin: 12/16/18 14:40 Dose: 999 mls/hr Dextrose/Sodium Chloride (Dextrose 5%-1/2 Ns) 1,000 mls @ 125 mls/hr IV ASDIRECTED [facility] Dextrose/Sodium Chloride (Dextrose 5%-Normal Saline) 1,000 mls @ 125 mls/hr IV ASDIRECTED [facility] Last Admin: 12/17/18 01:52 Dose: 125 mls/hr Thiamine HCl 100 mg/ Sodium (Chloride) 101 mls @ 202 mls/hr IV ONETIME ONE Stop: 12/16/18 17:57 Last Admin: 12/16/18 20:38 Dose: 202 mls/hr Iopamidol (Isovue Multipack-370 (76%)) 50 ml IVPUSH ONETIME STA Stop: 12/17/18 10:47 Last Admin: 12/17/18 10:48 Dose: 50 ml Lorazepam (Ativan) 0 mg IVPUSH Q4H PRN; Protocol PRN Reason: Agitation Last Admin: 12/17/18 06:11 Dose: 2 mg Nicotine (Habitrol) 14 mg TRDERM DAILY [facility] Last Admin: 12/18/18 09:01 Dose: Not Given Ondansetron HCl (Zofran) 4 mg IVPUSH ONETIME ONE Stop: 12/16/18 14:31 Last Admin: 12/16/18 14:40 Dose: 4 mg Ondansetron HCl (Zofran Odt) 4 mg PO Q4H PRN PRN Reason: nausea, able to take PO Last Admin: 12/17/18 20:26 Dose: 4 mg Potassium Chloride (Klor-Con M20) 40 meq PO ONETIME ONE Stop: 12/17/18 08:31 Last Admin: 12/17/18 09:38 Dose: 40 meq Temazepam (Restoril) 15 mg PO BEDTIME PRN PRN Reason: Sleep Thiamine HCl (Vitamin B-1) 100 mg PO BEDTIME [facility] Last Admin: 12/17/18 20:26 Dose: 100 mg - Free Text/Narrative Note: I have examined the patient. I have discussed findings and treatment plan with the resident. I agree with the assessment and plan outlined in the following resident's note.
== END 2018-12-18 11:45 | disposition home or self-care (01) ==
LOC: MW.ED 13:57 → MW.MS 17:37
PROVIDERS: ADMIT Internal Medicine; ATTEND Internal Medicine
DX: F10.188 Alcohol abuse with other alcohol-induced disorder (principal); E87.2 Acidosis; E87.1 Hypo-osmolality and hyponatremia; E83.51 Hypocalcemia; E16.2 Hypoglycemia, unspecified; R06.00 Dyspnea, unspecified; R82.4 Acetonuria; F17.210 Nicotine dependence, cigarettes, uncomplicated; Z88.6 Allergy status to analgesic agent; Z88.5 Allergy status to narcotic agent
CPT/HCPCS: 36415; 71046; 71046-26; 71275; 71275-26; 80048; 80053; 81001; 82962; 83036; 83605; 83735; 83935; 84100; 84133; 84300; 84484; 84540; 85025; 85027; 85610; 93005; 94640; 96361; 96365; 96375; 99285; 99285-25; A9270-GY; G0480; J1650; J2060; J2405; J3411; J7030; J7040; J7042; J7620-GY; Q9967